=== PATIENT | male | born 1960 | race Asian ===

== ENCOUNTER 2017-05-10 16:13 | Emergency (ER) | payer OTHER ==
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
--- NOTE | 2017-05-10 18:38 | RAD ---
INDICATION: Back pain. Injury 3 weeks ago. COMPARISON: None TECHNIQUE: Routine PA, lateral, and oblique imaging was performed . FINDINGS: Bones: There are no acute bony findings. There are arthritic changes consisting with moderate bony spur formation at L1-L2. There is facet arthropathy at L5-S1. Alignment: Normal Disc spaces: The disc spaces are well-maintained Soft tissues: There are no soft tissue abnormalities. IMPRESSION: MILD OSTEOARTHRITIC FINDINGS.
--- NOTE | 2017-05-10 18:39 | RAD ---
INDICATION: Neck pain. Injury 3 weeks ago. COMPARISON: None TECHNIQUE: Routine five-view imaging was performed FINDINGS: Bones: There are no acute bony findings. There is limited evaluation of C7. There are arthritic changes consisting of vertebral spurring and uncinate process spurring at C4-C5 and C5-C6. Craniocervical junction: The odontoid and atlantodental interval are normal. Alignment: There is cervical spine straightening. Disc spaces: Moderate narrowing C4-C5 and mild narrowing C5-C6. The remaining disc spaces are well-maintained. Soft tissues: The prevertebral soft tissues are normal. IMPRESSION: MODERATE MIDCERVICAL OSTEOARTHRITIS.
[2017-05-10 19:07] VITALS: BP 150/95
== END 2017-05-10 19:18 | disposition home or self-care (01) ==
LOC: UCEAST 16:13
DX: M47.9 Spondylosis, unspecified (principal); S16.1XXA Strain of muscle, fascia and tendon at neck level, initial encounter; X58.XXXA Exposure to other specified factors, initial encounter; Y93.9 Activity, unspecified; Y92.9 Unspecified place or not applicable; Y99.9 Unspecified external cause status
CPT/HCPCS: 70450; 72050; 72110; 99212; G0463

== ENCOUNTER 2017-06-22 14:09 | Emergency (ER) | payer SELFPAY ==
[2017-06-22 14:32] VITALS: BP 149/100
[2017-06-22] MEDS ORDERED: Aspirin Low Dose CHEW TAB* 81 MG PO ONE (14:33)
[2017-06-22] MEDS ORDERED: Aspirin Low Dose CHEW TAB* 81 MG ONE (14:36)
--- NOTE | 2017-06-22 14:45 | UC ---
Cardiac HPI - HPI Summary HPI Summary: intermittent left shoulder and chest pain with subjective SOB has been going on /off for 2 weeks --no know injury to shoulder or chest wall - History of Current Complaint Chief Complaint: UCChestPain Stated Complaint: chest pain Time Seen by Provider: 06/22/17 14:10 Hx Obtained From: Patient Onset/Duration: Gradual Onset, Lasting Weeks - 2, Still Present Timing: Constant Initial Severity: Moderate Current Severity: Moderate Chest Pain Location: Mid Sternal Character: Heaviness Aggravating Factor(s): Nothing Alleviating Factor(s): Nothing Associated Signs & Symptoms: Positive: Chest Pain, SOB - Allergy/Home Medications Allergies/Adverse Reactions: Allergies Allergy/AdvReac Type Severity Reaction Status Date / Time No Known Allergies Allergy Verified 06/22/17 14:35 PMH/Surg Hx/FS Hx/Imm Hx Previously Healthy: No Endocrine History: Diabetes Cardiovascular History: Hypertension - Surgical History Surgical History: None - Family History Known Family History: Positive: Hypertension - Social History Occupation: Employed Full-time Lives: With Family Alcohol Use: None Substance Use Type: None Smoking Status (MU): Never Smoked Tobacco Review of Systems Constitutional: Negative Skin: Negative Eyes: Negative ENT: Negative Respiratory: Shortness Of Breath Cardiovascular: Chest Pain, Other - left shoulder pain Gastrointestinal: Negative Genitourinary: Negative Motor: Negative Neurovascular: Negative Musculoskeletal: Negative Neurological: Negative Psychological: Negative Is Patient Immunocompromised?: No All Other Systems Reviewed And Are Negative: Yes Physical Exam Triage Information Reviewed: Yes Appearance: Well-Appearing, No Pain Distress, Well-Nourished Vital Signs: Initial Vital Signs Temp 98.2 F 06/22/17 14:19 Pulse 73 06/22/17 14:19 Resp 18 06/22/17 14:19 BP 149/100 06/22/17 14:19 Pulse Ox 97 06/22/17 14:19 Eye Exam: Normal Eyes: Positive: Conjunctiva Clear ENT Exam: Normal ENT: Positive: Normal ENT inspection, Hearing grossly normal, Pharynx normal. Negative: TMs normal, TM bulging, Trismus, Muffled voice, Hoarse voice, Dental tenderness, Sinus tenderness Dental Exam: Normal Neck exam: Normal Neck: Positive: Supple, Nontender, No Lymphadenopathy Respiratory Exam: Normal Respiratory: Positive: Chest non-tender, Lungs clear, Normal breath sounds, No respiratory distress, No accessory muscle use Cardiovascular Exam: Normal Cardiovascular: Positive: RRR, No Murmur, Pulses Normal, Brisk Capillary Refill Abdominal Exam: Normal Abdomen Description: Positive: Nontender, No Organomegaly, Soft. Negative: CVA Tenderness (R), CVA Tenderness (L) Bowel Sounds: Positive: Present Musculoskeletal Exam: Normal Musculoskeletal: Positive: Strength Intact, ROM Intact, No Edema Neurological Exam: Normal Neurological: Positive: Alert, Muscle Tone Normal Psychological Exam: Normal Skin Exam: Normal Diagnostics - EKG Cardiac Rate: NL Cardiac Rhythm: Sinus: Normal - 1.5 mm elevation V1-4 Ectopy: None ST Segment: Non-Specific - Assessment/Plan Course Of Treatment: iv, asprin to [facility] [place] for comprehensive evaluation by ambulance - Clinical Impression Provider Diagnoses: Chest pain - Physician Notifications Discussed Patient Care With: Marjorie Wu Time Discussed With Above Provider: 14:30 Instructed by Provider To: Transfer Discharge - Discharge Plan Condition: Stable Disposition: TRANS HIGHER LVL OF CARE FAC Referrals: Harjinder Padilla MD [Primary Care Provider] -
== END 2017-06-22 14:50 | disposition short-term general hospital (02) ==
LOC: UCEAST 14:09
DX: R07.2 Precordial pain (principal); M25.512 Pain in left shoulder; R06.02 Shortness of breath; E11.9 Type 2 diabetes mellitus without complications; I10 Essential (primary) hypertension
CPT/HCPCS: 93005; 99213; A9270-GY; G0463

== ENCOUNTER 2017-06-22 15:03 | Emergency (ER) | payer OTHER ==
[2017-06-22 15:25] LABS: ABS Basophils 0 10^3/ul (0-0.2); ABS Eosinophils 0.1 10^3/ul (0-0.6); ABS Lymphocytes 1.7 10^3/ul (1.0-4.8); ABS Monocytes 0.3 10^3/ul (0-0.8); ABS Neutrophils 2.7 10^3/ul (1.5-7.7); ABS Nucleated RBC 0 10^3/ul; Eosinophil % 2.4 % (0-6); Hematocrit 47 % (42-52); Hemoglobin 16.3 g/dl (14.0-18.0); Lymphocyte % 35.6 % (25-47); Mean Corpuscular HGB Conc 35 g/dl (31-36); Mean Corpuscular Hemoglobin 30 pg (27-31); Mean Corpuscular Volume 86 fL (80-94); Mean Platelet Volume 8 um3 (7.4-10.4); Nucleated Red Blood Cells % 0; Platelet Count 197 10^3/ul (150-450); Red Blood Count 5.52 10^6/ul (4.0-5.4); Red Cell Distribution Width 14 % (10.5-15); White Blood Count 4.9 10^3/ul (3.5-10.8)
[2017-06-22 15:34] LABS: INR 0.91 (0.77-1.02)
[2017-06-22 15:38] LABS: EGFR Non-African American 78.8 (>60)
--- NOTE | 2017-06-22 16:02 | RAD ---
Indication: Chest pressure. Single frontal view of the chest performed at 1546 hours was reviewed. No prior study is available for comparison. No mediastinal shift is noted. Heart is of normal size and configuration. Lung shepherd appear clear. IMPRESSION: NO ACTIVE CARDIOPULMONARY DISEASE IS NOTED.
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
[2017-06-22 19:23] VITALS: BP 139/88
== END 2017-06-22 19:22 | disposition home or self-care (01) ==
LOC: ED 15:03
DX: R07.89 Other chest pain (principal); E11.65 Type 2 diabetes mellitus with hyperglycemia; I44.0 Atrioventricular block, first degree; I10 Essential (primary) hypertension; M25.561 Pain in right knee; M25.511 Pain in right shoulder
CPT/HCPCS: 36415; 71045; 80053; 82550; 82553; 83605; 83735; 83880; 84436; 84443; 84484; 85025; 85379; 85610; 85730; 87502; 93005; 99283

== ENCOUNTER 2018-08-07 15:09 | Emergency (ER) | payer OTHER ==
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
[2018-08-07] MEDS ORDERED: Ketorolac INJ* 60 MG/2 ML VIAL IM ONE (16:23)
--- OUTSIDE RECORDS SUMMARY | 2018-08-07 16:23 | XMS REPORT | Continuity of Care Document ---
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 M25.561 Pain in Medicine - M.D. right knee [place] M54.2 Cervicalgia M54.5 Low back pain Plan of Treatment Future Appointment(s):10/14/2018 10:45 am - Mamta Najera M.D. at [facility]08/09/2018 10:40 am - Isac Doss NP at [facility] Internal Medicine - Ylzinhbvn16/06/2019 - Mamta Najera M.D.M25.561 Pain in right kneeFollow up: Follow up: 3 jyytgpQ85.461 Effusion, right kneeS83.241D Other tear of medial meniscus, current injury, right knee, s
[2018-08-07] MEDS ORDERED: oxyCODONE/Acetamin 5/325 MG* TAB PO ONE (16:24)
[2018-08-07 16:45] LABS: Hematocrit 42 % (42-52); Mean Corpuscular HGB Conc 34 g/dl (31-36); Mean Corpuscular Hemoglobin 30 pg (27-31); Mean Corpuscular Volume 89 fL (80-94); Mean Platelet Volume 7.7 fL (7.4-10.4); Platelet Count 262 10^3/ul (150-450); Red Blood Count 4.67 10^6/ul (4.00-5.40); Red Cell Distribution Width 14 % (10.5-15); White Blood Count 17.4 10^3/ul (3.5-10.8)
[2018-08-07 17:02] LABS: Albumin 3.4 g/dL (3.2-5.2); Albumin/Globulin Ratio 0.8 (1-3); BUN/Creatinine Ratio 25.5 (8-20); Calcium 8.8 mg/dL (8.6-10.3); EGFR African American 83.8 (>60); EGFR Non-African American 69.2 (>60); Globulin 4.3 g/dL (2-4); Potassium 3.5 mmol/L (3.5-5.0); Total Bilirubin 0.6 mg/dL (0.2-1.0); Total Protein 7.7 g/dL (6.4-8.9)
[2018-08-07 17:04] LABS: Troponin I 0.02 ng/mL (<0.04)
[2018-08-07 17:32] LABS: ABS Basophils 0 10^3/ul (0-0.2); ABS Eosinophils 0.1 10^3/ul (0-0.6); ABS Lymphocytes 0.7 10^3/ul (1.0-4.8); ABS Monocytes 1.9 10^3/ul (0-0.8); ABS Neutrophils 14.7 10^3/ul (1.5-7.7); ABS Nucleated RBC 0 10^3/ul; Eosinophil % 0.7 %; Lymphocyte % 4.1 %; Nucleated Red Blood Cells % 0
[2018-08-07] MEDS ORDERED: Morphine VIAL* 10 MG/ML 1 ML VIAL IM ONE (18:40)
[2018-08-07] MEDS ORDERED: Morphine VIAL* 4 MG/ML VIAL (1 ml vial) ONE (18:41)
[2018-08-07] MEDS ORDERED: Ibuprofen TAB* 800 MG PO ONE (22:08)
[2018-08-07 22:39] VITALS: BP 000/00
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
== END 2018-08-07 22:36 | disposition home or self-care (01) ==
LOC: ED 15:09
DX: S13.9XXA Sprain of joints and ligaments of unspecified parts of neck, initial encounter (principal); J98.11 Atelectasis; R07.89 Other chest pain; M54.2 Cervicalgia; V49.9XXA Car occupant (driver) (passenger) injured in unspecified traffic accident, initial encounter; Y92.9 Unspecified place or not applicable; I10 Essential (primary) hypertension
CPT/HCPCS: 36415; 71046; 72050; 72125; 72141; 80053; 84484; 85025; 96372; 99284; A9270-GY; J1885; J2270

== ENCOUNTER 2018-08-12 13:34 | Emergency (ER) | payer SELFPAY ==
[2018-08-12] MEDS ORDERED: Ketorolac INJ* 30 MG/ML 1 ML VIAL IV PUSH ONE (14:09)
[2018-08-12 14:32] LABS: ABS Basophils 0.1 10^3/ul (0-0.2); ABS Eosinophils 0 10^3/ul (0-0.6); ABS Lymphocytes 1.1 10^3/ul (1.0-4.8); ABS Monocytes 1.4 10^3/ul (0-0.8); ABS Neutrophils 19.1 10^3/ul (1.5-7.7); ABS Nucleated RBC 0 10^3/ul; Eosinophil % 0.1 %; Hematocrit 38 % (42-52); Hemoglobin 12.7 g/dl (14.0-18.0); Lymphocyte % 5.3 %; Mean Corpuscular HGB Conc 33 g/dl (31-36); Mean Corpuscular Hemoglobin 29 pg (27-31); Mean Corpuscular Volume 89 fL (80-94); Mean Platelet Volume 7.4 fL (7.4-10.4); Nucleated Red Blood Cells % 0.1; Platelet Count 384 10^3/ul (150-450); Red Blood Count 4.32 10^6/ul (4.00-5.40); Red Cell Distribution Width 15 % (10.5-15); White Blood Count 21.7 10^3/ul (3.5-10.8)
[2018-08-12 14:51] LABS: Albumin/Globulin Ratio 0.6 (1-3); BUN/Creatinine Ratio 24.4 (8-20); C Reactive Protein 352.83 mg/L (<8.01); Calcium 8.2 mg/dL (8.6-10.3); EGFR African American 76.5 (>60); EGFR Non-African American 63.2 (>60); Globulin 4.9 g/dL (2-4); Potassium 3.6 mmol/L (3.5-5.0); Total Protein 7.9 g/dL (6.4-8.9)
[2018-08-12] MEDS ORDERED: Piperacillin/Tazobac ADVAN(*) 3.375 GM in NS 0.9% 100 ML* 100 ML IVPB ONE (14:54)
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
[2018-08-12 15:29] LABS: Influenza A Molecular NEGATIVE (Negative); Influenza B Molecular NEGATIVE (Negative)
[2018-08-12] MEDS ORDERED: Iodixanol* (CONTRAST) 320 MG/ML 100 ML SDV IV ONE (16:03)
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
[2018-08-12] MEDS ORDERED: Morphine VIAL* 10 MG/ML 1 ML VIAL IV ONE ×3 (16:33→22:45)
[2018-08-12] MEDS ORDERED: Acetaminophen TAB* 325 MG PO ONE (16:58)
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
[2018-08-12] MEDS ORDERED: Ibuprofen TAB* 400 MG PO ONE (22:19)
[2018-08-12 22:35] LABS: Erythrocyte Sed Rate 71 mm/Hr (0-20)
[2018-08-12] MEDS ORDERED: Morphine VIAL* 4 MG/ML VIAL (1 ml vial) ONE (22:46)
[2018-08-12 22:59] VITALS: BP 139/89
== END 2018-08-12 23:15 | disposition short-term general hospital (02) ==
LOC: ED 13:34
DX: J85.3 Abscess of mediastinum (principal); S32 Fracture of lumbar spine and pelvis; M25.511 Pain in right shoulder; V49.9XXD Car occupant (driver) (passenger) injured in unspecified traffic accident, subsequent encounter; E11.9 Type 2 diabetes mellitus without complications; I10 Essential (primary) hypertension
CPT/HCPCS: 36415; 71046; 71260; 74177; 80053; 85025; 85652; 86140; 96365; 96375; 96376; 99283; A9270-GY; J1885; J2270; J2543; Q9967

== ENCOUNTER 2018-11-22 19:10 | Observation (INO) | payer OTHER ==
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
[2018-11-22] MEDS ORDERED: NS 0.9% 1000 ML** 1,000 ML IV ONE (21:53)
[2018-11-22] MEDS ORDERED: Vancomycin(*) 1,000 MG in NS 0.9% 250 ML* 250 ML IVPB ONE (21:53)
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
[2018-11-22 22:32] LABS: ABS Eosinophils 0.2 10^3/ul (0-0.6); ABS Lymphocytes 2.4 10^3/ul (1.0-4.8); ABS Monocytes 0.5 10^3/ul (0-0.8); ABS Neutrophils 2.3 10^3/ul (1.5-7.7); Eosinophil % 3.2 %; Hematocrit 44 % (42-52); Hemoglobin 14.6 g/dL (14.0-18.0); Lymphocyte % 44.3 %; Mean Corpuscular HGB Conc 34 g/dL (31-36); Mean Corpuscular Hemoglobin 29 pg (27-31); Mean Corpuscular Volume 85 fL (80-94); Mean Platelet Volume 7.3 fL (7.4-10.4); Nucleated Red Blood Cells % 0.2; Platelet Count 217 10^3/uL (150-450); Red Blood Count 5.12 10^6 /uL (4.18-5.48); Red Cell Distribution Width 14 % (10-15); White Blood Count 5.3 10^3/uL (3.5-10.8)
[2018-11-22 22:36] LABS: INR 0.85 (0.82-1.09)
[2018-11-22 22:47] LABS: Albumin 4.1 g/dL (3.2-5.2); Albumin/Globulin Ratio 1.1 (1-3); BUN/Creatinine Ratio 16.5 (8-20); C Reactive Protein 3.1 mg/L (<8.01); EGFR African American 112.8 (>60); EGFR Non-African American 93.2 (>60); Globulin 3.8 g/dL (2-4); Potassium 3.7 mmol/L (3.5-5.0); Total Bilirubin 0.4 mg/dL (0.2-1.0); Total Protein 7.9 g/dL (6.4-8.9)
[2018-11-22] MEDS ORDERED: Acetaminophen TAB* 325 MG PO PRN (23:12)
[2018-11-22] MEDS ORDERED: Magnesium Hydroxide LIQ* 30 ML UDC PO PRN (23:12)
[2018-11-22] MEDS ORDERED: Dextrose 50% Syringe 50 ML* 25 GM/50 ML SYRINGE IV PUSH PRN (23:16)
[2018-11-22] MEDS ORDERED: amLODIPine TAB* 5 MG PO SCH (23:45)
[2018-11-22] MEDS ORDERED: Enoxaparin(*) 40 MG/0.4 ML SYR SUBCUT SCH (23:45)
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
[2018-11-23 06:44] LABS: Hematocrit 44 % (42-52); Hemoglobin 14.9 g/dL (14.0-18.0); Mean Corpuscular HGB Conc 34 g/dL (31-36); Mean Corpuscular Hemoglobin 29 pg (27-31); Mean Corpuscular Volume 85 fL (80-94); Mean Platelet Volume 7.2 fL (7.4-10.4); Platelet Count 195 10^3/uL (150-450); Red Blood Count 5.14 10^6 /uL (4.18-5.48); Red Cell Distribution Width 14 % (10-15); White Blood Count 4.7 10^3/uL (3.5-10.8)
[2018-11-23 07:00] LABS: BUN/Creatinine Ratio 12.9 (8-20); Calcium 8.6 mg/dL (8.6-10.3); EGFR African American 112.8 (>60); EGFR Non-African American 93.2 (>60)
[2018-11-23 07:49] VITALS: BP 155/94
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
--- NOTE | 2018-11-23 08:32 | PN ---
Progress Note - Progress Note Date of Service: 11/23/18 Note: Discussed with colleagues and my strong concern is that he has no infection and will be doing further tests for something that is not there. Disagree with radiology read for osteomyelitis or septic joint. Would recommend discharge and follow up outpatient. If uncomfortable could consult ID to weigh in. Would not order MRI as this is an expensive test and may provide no further support.
[2018-11-23] MEDS: Insulin LISPRO* 1 UNITS UNIT SUBCUT SCH ×3 (08:46→14:42)
[2018-11-23 09:10] LABS: TSH (Thyroid Stimulating Horm) 1.99 mcIU/mL (0.34-5.60)
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
[2018-11-23] MEDS ORDERED: Atorvastatin* 40 MG TAB PO SCH (17:00)
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
== END 2018-11-23 13:10 | disposition home or self-care (01) ==
LOC: ED 19:10 → INTOOBSV 23:12 → MED 23:12
PROVIDERS: ADMIT Internal Medicine; ATTEND Internal Medicine
DX: M25.511 Pain in right shoulder (principal); E11.9 Type 2 diabetes mellitus without complications; I10 Essential (primary) hypertension; F32.9 Major depressive disorder, single episode, unspecified; E66.9 Obesity, unspecified; M54.5 Low back pain; M25.562 Pain in left knee; M25.561 Pain in right knee
CPT/HCPCS: 36415; 80048; 80053; 83036; 83605; 84443; 85025; 85027; 85610; 85652; 86140; 87040; 96365; 96366; 96372; 99284; A9270-GY; G0378; J1650; J3370